=== PATIENT | female | born 1970 | race Two or more races ===

== ENCOUNTER 2016-12-22 15:24 | Emergency (ER) | payer OTHER ==
[2016-12-22] MEDS ORDERED: IOPAMIDOL 370 (76%) 100 ML VIAL IV ONE (15:25)
[2016-12-22 16:02] LABS: ABSOLUTE NEUTROPHIL COUNT 4.2 K/mm3 (1.8-7.7); BASO % 0.3 % (0.2-1.0); EOS # 0.1 (0.0-0.5); EOS % 0.9 % (0.9-2.9); HEMATOCRIT 42.8 % (37.0-47.0); HEMOGLOBIN 14.2 gm/l (12.0-16.0); IMM NEUT% 0.3 % (0-1); LYMPH # 2.7 (1.0-4.8); LYMPH % 35.2 % (15-45); MEAN CELL VOLUME 90.5 fl (81.0-99.0); MEAN CORPUSCULAR HGB CONC 33.2 g/dl (33.0-37.0); MEAN PLATELET VOLUME 10.4 fl (7.4-10.4); MONO # 0.6 (0.0-0.8); NEUT % 55.3 % (43-75); PLATELET COUNT 221 K/mm3 (130-400)
[2016-12-22] MEDS ORDERED: HYDROMORPHONE HCL 0.5 MG/0.5 ML SYRINGE ONE (16:06)
--- NOTE | 2016-12-22 18:54 | CT ---
Exam Type: ABD/PELVIS W/ CON Date and Time: 12/22/2016 6:11 PM Clinical information: Severe acute low back pain and lower extremity numbness. Comparison: 03/20/2011. Procedure: Imaging device: [employer] Aquilion [address] scanner 1 mm axial images were obtained through the abdomen and pelvis. Stacked reconstructed 3, 4 and 5 mm images were photographed in the axial coronal and sagittal planes. No oral contrast was utilized for this examination. 100 ml of Isovue-370 was injected intravenously. Exam: with intravenous contrast. FINDINGS: Lung bases:The visualized lung bases appear to be appropriate with no mass, effusion or consolidation visualized. Liver: The liver appears to be of diffusely decreased attenuation when compared to the spleen. No focal mass or evidence of intrahepatic biliary dilatation is suggested. Spleen: The spleen is homogeneous and does not appear to be enlarged. Gallbladder: Normal without enlargement or evidence of adjacent inflammatory changes. Pancreas: Normal without enlargement or evidence of adjacent inflammatory changes. Adrenal glands: Normal without enlargement or evidence of adjacent inflammatory changes. Abdominal aorta: The aorta is of normal caliber and appears to be without significant atherosclerotic disease. Kidneys: The kidneys appear to be symmetric in size with no perinephric inflammatory changes are identified. No current findings of hydronephrosis are seen. Bowel structures: The visualized bowel is of normal caliber without evidence of dilatation or obstruction. No free fluid or mesenteric inflammatory changes are identified. Appendix: Appears likely surgically absent. Bladder: The bladder is of normal contour. No wall thickening or significant distention is observed. Hernia: No abdominal wall or inguinal hernia is visualized on this examination. Adenopathy: No significant enlarged adenopathy is visualized. Osseous structures: No evidence of a lumbar compression deformity is seen. There is the suggestion of a partially calcified left paracentral disc protrusion at L5-S1. Pelvic structures: A 1.8 cm dominant follicle is suggested within the left adnexa. No free fluid is observed. IMPRESSION: 1. Findings most commonly associated with diffuse fatty infiltration of the liver. 2. A small partially calcified central to left paracentral disc protrusion at L5-S1. 3. A 1.8 cm likely dominant follicle within the region of the left adnexa. 4. 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
[2016-12-22 19:41] LABS: SPECIFIC GRAVITY 1.015 (1.001-1.030); URINE BILIRUBIN NEGATIVE (NEGATIVE); URINE BLOOD NEGATIVE (NEGATIVE); URINE GLUCOSE (UA) NEGATIVE (NEGATIVE); URINE LEUKOCYTE ESTERASE TRACE (NEGATIVE); URINE NITRITE NEGATIVE (NEGATIVE); URINE PROTEIN NEGATIVE (NEGATIVE); URINE UROBILINOGEN NORMAL (0-1 mg/dl)
[2016-12-22 19:48] LABS: URINE APPEARANCE SL CLOUDY; URINE COLOR YELLOW
[2016-12-22] MEDS ORDERED: ACETAMINOPHEN 500 MG TABLET ONE (19:50)
[2016-12-22] MEDS ORDERED: KETOROLAC TROMETHAMINE 15 MG/ML VIAL ONE (19:51)
[2016-12-22 20:22] LABS: URINE RBC 0-1 /hpf
[2016-12-22 20:23] LABS: URINE BACTERIA TRACE
== END 2016-12-22 20:52 | disposition home or self-care (01) ==
LOC: ED 15:24
DX: M54.5 Low back pain (principal)
CPT/HCPCS: 84702; 85025; 80048; 81001; 74177; 96375; 99284 ×2; 96374; J1885; A9270; Q9967; J1170